=== PATIENT | female | born 1965 | race Caucasian/White ===

== ENCOUNTER → 2016-03-26 | Outpatient (CLI) | payer OTHER ==
[2016-03-26 12:38] LABS: Hemoglobin A1C 9.7 % (4.2-6.1)
== END | disposition home or self-care (01) ==
LOC: LABWHC1 10:12
PROVIDERS: ATTEND Family Medicine
DX: E11.9 Type 2 diabetes mellitus without complications (principal)
CPT/HCPCS: 36415; 82947; 83036

== ENCOUNTER → 2016-04-04 | Outpatient (CLI) | payer OTHER ==
--- NOTE | 2016-04-05 11:13 | MM ---
Reason for exam: screening (asymptomatic). Last mammogram was performed 1 year and 1 month ago. History: Family history of breast cancer in maternal grandmother and breast cancer in maternal aunt. Benign core biopsy of the left breast. Physical Findings: A clinical breast exam by your physician is recommended on an annual basis and results should be correlated with mammographic findings. MG 3D Screening Mammo W/Cad Bilateral CC and MLO view(s) were taken. Prior study comparison: February 28, 2015, mammogram, performed at [facility]. October 14, 2012, mammogram, performed at [facility]. The breast tissue is heterogeneously dense. This may lower the sensitivity of mammography. Finding: There are typically benign round, diffuse/scattered calcifications in both breasts. No significant changes in finding since February 28, 2015 and October 14, 2012. ASSESSMENT: Benign, BI-RAD 2 RECOMMENDATION: Routine screening mammogram of both breasts in 1 year.
== END | disposition home or self-care (01) ==
LOC: RADMAMWWP 07:01
PROVIDERS: ATTEND Family Medicine
DX: Z12.31 Encounter for screening mammogram for malignant neoplasm of breast (principal)
CPT/HCPCS: 77063; G0202

== ENCOUNTER → 2016-06-18 | Outpatient (CLI) | payer OTHER ==
[2016-06-18 09:13] LABS: ALT 27 U/L (9-52); AST 15 U/L (14-36); Alkaline Phosphatase 55 U/L (38-126); Anion Gap 11 mmol/L; Blood Urea Nitrogen 12 mg/dL (7-17); Calcium 9.1 mg/dL (8.4-10.2); Carbon Dioxide 26 mmol/L (22-30); Chloride 103 mmol/L (98-107); Cholesterol 197 mg/dL (<200); Glucose 143 mg/dL (74-99); HDL Cholesterol 57 mg/dL (40-60); Non-African American GFR(MDRD) >60 (>60 ml/min/1.73 sqM); Potassium 3.7 mmol/L (3.5-5.1); Sodium 140 mmol/L (137-145); Total Bilirubin 0.9 mg/dL (0.2-1.3); Total Protein 6.9 g/dL (6.3-8.2); Triglycerides 99 mg/dL (<150)
[2016-06-18 10:59] LABS: Hemoglobin A1C 6.1 % (4.2-6.1)
== END ==
LOC: LABWHC1 08:18
PROVIDERS: ATTEND Family Medicine
DX: E11.65 Type 2 diabetes mellitus with hyperglycemia (principal); E11.9 Type 2 diabetes mellitus without complications
CPT/HCPCS: 36415; 80053; 80061; 82043; 83036; 83721

== ENCOUNTER → 2016-06-28 | Outpatient (CLI) | payer SELFPAY ==
--- NOTE | 2016-06-28 14:50 | CT ---
EXAMINATION TYPE: CT heart w calcium score DATE OF EXAM: 06/28/2016 9:23 AM COMPARISON: NONE HISTORY: Screening for cardiovascular disorder. 213.9 CT DLP: 51.9 mGycm Automated exposure control for dose reduction was used. CT CALCIUM SCORING Coronary calcium is a marker for plaque (fatty deposits) in a blood vessel or atherosclerosis (harden ing of the arteries). The presence and amount of calcium detected in a coronary artery by the CT sca n, indicates the presence and amount of atherosclerotic plaque. These calcium deposits appear years before the development of heart disease symptoms such as chest pain and shortness of breath. A calcium score is computed for each of the coronary arteries based upon the volume and density of th e calcium deposits. This can be referred to as your calcified plaque burden. It does not correspond directly to the percentage of narrowing in the artery but does correlate with the severity of the un derlying coronary atherosclerosis. PROCEDURE TECHNIQUE - Prospective Gating was used. Slice thickness: 3mm. Density threshold (HU): 130, Pixel threshold: 3, Algorithm: discrete. RESULTS Region: LM Calcium Score (Agatston): 0 Volume (mm3): 0 Mass (g): 0 Region: RCA Calcium Score (Agatston): 0 Volume (mm3): 0 Mass (g): 0 Region: LAD Calcium Score (Agatston): 0 Volume (mm3): 0 Mass (g): 0 Region: CX Calcium Score (Agatston): 0 Volume (mm3): 0 Mass (g): 0 Total: Calcium Score (Agatston): 0 Volume (mm3): 0 Mass (g): 0 TOTAL CALCIUM SCORE: 0 OTHER: The aorta at the level of the main pulmonary artery is 3.3 cm. The main pulmonary artery at t he bifurcation is 2.8 cm. IMPRESSION: Calcium Score: 0 Implication: No identifiable plaque. Risk of Coronary Artery Disease: Very low, generally less than 5%.
== END | disposition home or self-care (01) ==
LOC: RADCTMAIN 07:00
PROVIDERS: ATTEND Radiology Diagnostic Radiology
DX: Z13.6 Encounter for screening for cardiovascular disorders (principal)

== ENCOUNTER → 2016-11-29 | Outpatient (CLI) | payer OTHER ==
[2016-11-29 10:50] LABS: Anion Gap 13 mmol/L; Blood Urea Nitrogen 16 mg/dL (7-17); Calcium 9.5 mg/dL (8.4-10.2); Carbon Dioxide 26 mmol/L (22-30); Chloride 101 mmol/L (98-107); Cholesterol 232 mg/dL (<200); Glucose 144 mg/dL (74-99); HDL Cholesterol 69 mg/dL (40-60); Non-African American GFR(MDRD) >60 (>60 ml/min/1.73 sqM); Sodium 140 mmol/L (137-145)
== END | disposition home or self-care (01) ==
LOC: LABWHC1 09:58
PROVIDERS: ATTEND Family Medicine
DX: E78.00 Pure hypercholesterolemia, unspecified (principal); E11.65 Type 2 diabetes mellitus with hyperglycemia
CPT/HCPCS: 36415; 80048; 80061

== ENCOUNTER → 2017-06-05 | Outpatient (CLI) | payer OTHER ==
--- NOTE | 2017-06-05 10:01 | MM ---
Reason for exam: screening (asymptomatic). Last mammogram was performed 1 year and 2 months ago. History: Family history of breast cancer in maternal grandmother and breast cancer in maternal aunt. Benign core biopsy of the left breast. Physical Findings: A clinical breast exam by your physician is recommended on an annual basis and results should be correlated with mammographic findings. MG 3D Screening Mammo W/Cad Bilateral CC, MLO, and XCCL view(s) were taken. Prior study comparison: April 04, 2016, bilateral MG 3d screening mammo w/cad. February 28, 2015, mammogram, performed at [facility]. The breast tissue is heterogeneously dense. This may lower the sensitivity of mammography. Finding #1: There is a typically benign equal density, obscured round mass located 8 cm from the nipple in the upper outer quadrant, posterior position of the right breast, slightly enlarged from 2017, ultrasound recommended. Finding #2: There are typically benign, stable, heterogeneous diffuse/scattered calcifications throughout both breasts. New finding since April 04, 2016 and February 28, 2015. These results were verbally communicated with the patient and result sheet given to the patient on 06/05/17. ASSESSMENT: Incomplete: need additional imaging evaluation, BI-RAD 0 RECOMMENDATION: Ultrasound of the left breast. [facility] will attempt to contact patient to return for ultrasound.
--- NOTE | 2017-06-05 10:03 | USB ---
Reason for exam: additional evaluation requested from abnormal screening. History: Family history of breast cancer in maternal grandmother and breast cancer in maternal aunt. Benign core biopsy of the left breast. Physical Findings: Nurse did not find any significant physical abnormalities on exam. US Breast Workup Limited LT Left breast ultrasound demonstrates three cystic lesions measuring 1.8 x 1.0 x 1.5cm at 2 o'clock, 0.6 x 0.4 x 0.8cm at 3 o'clock and 0.6 x 0.3 x 0.5cm at the axilla tail. These results were verbally communicated with the patient and result sheet given to the patient on 06/05/17. ASSESSMENT: Benign, BI-RAD 2 RECOMMENDATION: Return to routine screening mammogram schedule for both breasts.
== END | disposition home or self-care (01) ==
LOC: RADMAMWWP 08:01
PROVIDERS: ATTEND Family Medicine
DX: Z12.31 Encounter for screening mammogram for malignant neoplasm of breast (principal); R92.8 Other abnormal and inconclusive findings on diagnostic imaging of breast
CPT/HCPCS: 77063; 77067

== ENCOUNTER → 2017-11-15 | Outpatient (CLI) | payer MEDICAID ==
[2017-11-15 11:16] LABS: HCT 41.5 % (34.0-46.0); HGB 13.4 gm/dL (11.4-16.0); MCH 27.3 pg (25.0-35.0); MCHC 32.3 g/dL (31.0-37.0); MCV 84.6 fL (80.0-100.0); Mean Platelet Volume 7.2; Platelet Count 256 k/uL (150-450); RBC 4.91 m/uL (3.80-5.40); RDW 13.8 % (11.5-15.5); WBC 8.9 k/uL (3.8-10.6)
[2017-11-15 11:53] LABS: ALT 50 U/L (9-52); AST 35 U/L (14-36); Albumin 4.2 g/dL (3.5-5.0); Alkaline Phosphatase 54 U/L (38-126); Anion Gap 9 mmol/L; Blood Urea Nitrogen 15 mg/dL (7-17); Calcium 9.1 mg/dL (8.4-10.2); Carbon Dioxide 24 mmol/L (22-30); Chloride 105 mmol/L (98-107); Cholesterol 231 mg/dL (<200); Glucose 142 mg/dL (74-99); HDL Cholesterol 56 mg/dL (40-60); LDL Cholesterol,Calculated 153 mg/dL (0-99); Potassium 4.1 mmol/L (3.5-5.1); Sodium 138 mmol/L (137-145); Total Bilirubin 0.8 mg/dL (0.2-1.3); Triglycerides 108 mg/dL (<150)
== END | disposition home or self-care (01) ==
LOC: LABWHC1 10:40
PROVIDERS: ATTEND Internal Medicine Interventional Cardiology
DX: E78.2 Mixed hyperlipidemia (principal); I10 Essential (primary) hypertension; I49.9 Cardiac arrhythmia, unspecified
CPT/HCPCS: 36415; 80053; 80061; 84443; 85027

== ENCOUNTER → 2018-01-29 | Outpatient (CLI) | payer MEDICAID ==
[2018-01-29 15:55] LABS: LDL Cholesterol,Calculated 115.6 mg/dL (0.0-131.0); VLDL Calculation 23.4 mg/dL (5.00-40.00)
== END ==
LOC: LABWHC1 08:42
PROVIDERS: ATTEND Internal Medicine Interventional Cardiology
DX: E78.2 Mixed hyperlipidemia (principal)
CPT/HCPCS: 36415; 80061; 84450; 84460

== ENCOUNTER → 2018-07-22 | Outpatient (CLI) | payer MEDICAID ==
--- NOTE | 2018-07-22 12:27 | MM ---
Reason for exam: screening (asymptomatic). Baseline mammogram. History: Family history of breast cancer in maternal grandmother and breast cancer in maternal aunt. Benign core biopsy of the left breast. Physical Findings: Nurse did not find any significant physical abnormalities on exam. MG 3D Screening Mammo W/Cad Bilateral CC and MLO view(s) were taken. Prior study comparison: June 05, 2017, bilateral MG 3d screening mammo w/cad. April 04, 2016, bilateral MG 3d screening mammo w/cad. The breast tissue is heterogeneously dense. This may lower the sensitivity of mammography. There are benign appearing round, oval, circumscribed bilateral masses waxing and waning over time most mammographic cysts. Left ultrasound demonstrates multiple cysts on 06/05/17. Right ultrasound will confirm cystic nature. Benign appearing bilateral calcifications, similar in distribution to the prior exams. These results were verbally communicated with the patient and result sheet given to the patient on 07/22/18. ASSESSMENT: Incomplete: need additional imaging evaluation, BI-RAD 0 RECOMMENDATION: Ultrasound of both breasts. (right upper outer quadrant, lower inner quadrant)
--- NOTE | 2018-07-22 12:30 | USB ---
Reason for exam: additional evaluation requested from abnormal screening. History: Family history of breast cancer in maternal grandmother and breast cancer in maternal aunt. Benign core biopsy of the left breast. Physical Findings: Breast exam preformed at baseline screening. US Breast Workup Limited RT Right limited breast ultrasound including focal area of concern, retroareolar and axilla demonstrates a 2.8 x 1.3 x 4.9cm cystic, benign lesion at 5 o'clock, a 2.6 x 0.3 x 2.0cm oval, benign, cystic cluster at 9 o'clock and a 1.2 x 0.4 x 0.5cm cystic cluster at 10 o'clock, minimally complicated, thin septations, probably benign. These results were verbally communicated with the patient and result sheet given to the patient on 07/22/18. ASSESSMENT: Probably benign, BI-RAD 3 RECOMMENDATION: Ultrasound of the right breast in 6 months. (10 o'clock)
== END | disposition home or self-care (01) ==
LOC: RADMAMWWP 10:07
PROVIDERS: ATTEND Family Medicine
DX: Z12.31 Encounter for screening mammogram for malignant neoplasm of breast (principal); R92.8 Other abnormal and inconclusive findings on diagnostic imaging of breast
CPT/HCPCS: 77063; 77067

== ENCOUNTER → 2018-08-12 | Outpatient (CLI) | payer MEDICAID ==
[2018-08-12 10:17] LABS: Basophils % (A) 0 %; Eosinophils # (A) 0.1 k/uL (0-0.7); Eosinophils % (A) 2 %; HCT 40.8 % (34.0-46.0); HGB 13.4 gm/dL (11.4-16.0); Lymphocytes # (A) 2.2 k/uL (1.0-4.8); Lymphocytes % (A) 28 %; MCH 27.8 pg (25.0-35.0); MCHC 32.8 g/dL (31.0-37.0); MCV 84.7 fL (80.0-100.0); Monocytes # (A) 0.4 k/uL (0-1.0); Monocytes % (A) 5 %; Neutrophils % (A) 63 %; Platelet Count 217 k/uL (150-450); RBC 4.82 m/uL (3.80-5.40)
[2018-08-12 16:00] LABS: African American GFR (CKD) 115.5 (60.0-200.0); Albumin 4.3 g/dL (3.80-4.90); Albumin/Globulin Ratio 2.53 (1.60-3.17); Anion Gap 10.4 mmol/L (4.00-12.00); BUN/Creat Ratio 21.43 Ratio (12.00-20.00); Calcium 9.1 mg/dL (8.7-10.3); Carbon Dioxide 25.6 mmol/L (21.6-31.8); Globulin 1.7 g/dL (1.6-3.3); Total Bilirubin 0.8 mg/dL (0.2-1.2)
== END ==
LOC: LABWHC1 08:26
PROVIDERS: ATTEND Family Medicine
DX: Z00.00 Encounter for general adult medical examination without abnormal findings (principal); E11.9 Type 2 diabetes mellitus without complications; E78.00 Pure hypercholesterolemia, unspecified
CPT/HCPCS: 36415; 80053; 80061; 83036; 85025

== ENCOUNTER → 2019-02-03 | Outpatient (CLI) | payer MEDICAID ==
--- NOTE | 2019-02-03 09:18 | USB ---
Reason for exam: follow-up at short interval from prior study. History: Family history of breast cancer in maternal grandmother and breast cancer in maternal aunt. Benign core biopsy of the left breast. Physical Findings: Nurse did not find any significant physical abnormalities on exam. US Breast Limited RT Right limited breast ultrasound including focal area of concern, retroareolar and axilla demonstrates a 0.4 x 0.4 x 0.7cm oval, lobular, hypoechoic, stable lesion at 10 o'clock. Possible ductal ectasia at 9 o'clock as seen on prior. No new significant cystic or solid lesion greater than 0.50cm. These results were verbally communicated with the patient and result sheet given to the patient on 02/03/19. ASSESSMENT: Benign, BI-RAD 2 RECOMMENDATION: Return to routine screening mammogram schedule for both breasts. Back on schedule.
== END | disposition home or self-care (01) ==
LOC: RADUSWWP 08:13
PROVIDERS: ATTEND Family Medicine
DX: N60.01 Solitary cyst of right breast (principal)

== ENCOUNTER → 2019-09-17 | Outpatient (CLI) | payer MEDICAID ==
--- NOTE | 2019-09-18 09:11 | MM ---
Reason for exam: screening (asymptomatic). Last mammogram was performed 1 year and 2 months ago. History: Family history of breast cancer in maternal grandmother and breast cancer in maternal aunt. Benign core biopsy of the left breast. Physical Findings: A clinical breast exam by your physician is recommended on an annual basis and results should be correlated with mammographic findings. MG 3D Screening Mammo W/Cad Bilateral CC and MLO view(s) were taken. Prior study comparison: July 22, 2018, bilateral MG 3d screening mammo w/cad. June 05, 2017, bilateral MG 3d screening mammo w/cad. The breast tissue is heterogeneously dense. This may lower the sensitivity of mammography. Focal asymmetry upper outer quadrant left breast. This finding is changed when compared with previous exams. ASSESSMENT: Incomplete: need additional imaging evaluation, BI-RAD 0 RECOMMENDATION: Special view mammogram of the left breast. If lesion persists on supplemental views, image directed ultrasound is recommended. [facility] will attempt to contact patient to return for supplemental views and ultrasound if indicated.
== END | disposition home or self-care (01) ==
LOC: RADMAMWWP 08:49
PROVIDERS: ATTEND Family Medicine
DX: Z12.31 Encounter for screening mammogram for malignant neoplasm of breast (principal)
CPT/HCPCS: 77063; 77067

== ENCOUNTER → 2019-09-22 | Outpatient (CLI) | payer MEDICAID ==
--- NOTE | 2019-09-22 09:51 | MM ---
Reason for exam: additional evaluation requested from abnormal screening. Last mammogram was performed less than 1 month ago. History: Family history of breast cancer in maternal grandmother and breast cancer in maternal aunt. Benign core biopsy of the left breast. Physical Findings: Nurse Summary: 1cm nodule in the left breast at 11 o'clock and 2 o'clock (nurse mj). MG 3D Work Up W/Cad LT Spot compression CC, spot compression MLO, and LM view(s) were taken of the left breast. Prior study comparison: September 17, 2019, bilateral MG 3d screening mammo w/cad. July 22, 2018, bilateral MG 3d screening mammo w/cad. The breast tissue is heterogeneously dense. This may lower the sensitivity of mammography. Regional punctate calcifications redemonstrated. No persisting abnormality on spot 3D view. These results were verbally communicated with the patient and result sheet given to the patient on 09/22/19. ASSESSMENT: Incomplete: need additional imaging evaluation, BI-RAD 0 RECOMMENDATION: Ultrasound of the left breast. (including the 2 o'clock and 11 o'clock nurse palpated sites)
--- NOTE | 2019-09-22 09:53 | USB ---
Reason for exam: additional evaluation requested from abnormal screening. History: Family history of breast cancer in maternal grandmother and breast cancer in maternal aunt. Benign core biopsy of the left breast. US Breast Workup LT Technologist: Regi Hernandez Left complete breast ultrasound includes all four quadrants, the retroareolar region and axilla. Finding demonstrates a 1.0 x 1.0 x 0.8cm circular, cystic lesion at 2 o'clock, smaller, benign at the palpable and a 0.8 x 0.7 x 0.7cm complex cyst with septations versus cyst cluster at 2 o'clock, 6 month follow up recommended. Dense tissue at the 11 o'clock nurse palpated site. These results were verbally communicated with the patient and result sheet given to the patient on 09/22/19. ASSESSMENT: Probably benign, BI-RAD 3 RECOMMENDATION: Ultrasound of the left breast in 6 months. (attention 2 o'clock zone A) Manage on a clinical basis with regard to any suspicious palpable areas.
== END | disposition home or self-care (01) ==
LOC: RADMAMWWP 07:42
PROVIDERS: ATTEND Family Medicine
DX: N63.0 Unspecified lump in unspecified breast (principal)
CPT/HCPCS: 77061; 77065

== ENCOUNTER → 2020-04-08 | Outpatient (CLI) | payer MEDICAID ==
--- NOTE | 2020-04-11 08:44 | USB ---
Reason for exam: follow-up at short interval from prior study. History: Family history of breast cancer in maternal grandmother and breast cancer in maternal aunt. Benign core biopsy of the left breast. Physical Findings: Nurse did not find any significant physical abnormalities on exam. US Breast Limited LT Left limited breast ultrasound including focal area of concern, retroareolar and axilla demonstrates a 10 x 8 x 10mm oval, mixed lesion at 2 o'clock, decreased in size since 2018. These results were verbally communicated with the patient and result sheet given to the patient on 04/08/20. ASSESSMENT: Probably benign, BI-RAD 3 RECOMMENDATION: Follow-up diagnostic mammogram of both breasts in 6 months. Ultrasound of the left breast in 6 months.
== END | disposition home or self-care (01) ==
LOC: RADUSWWP 14:08
PROVIDERS: ATTEND Family Medicine
DX: R92.8 Other abnormal and inconclusive findings on diagnostic imaging of breast (principal)

== ENCOUNTER → 2020-10-26 | Outpatient (CLI) | payer MEDICAID ==
--- NOTE | 2020-10-27 10:09 | MM ---
Reason for exam: follow-up at short interval from prior study. Last mammogram was performed 1 year and 1 month ago. History: Family history of breast cancer in maternal grandmother and breast cancer in maternal aunt. Benign core biopsy of the left breast. Physical Findings: Nurse did not find any significant physical abnormalities on exam. MG 3D Diag Mammo W/Cad HILARIO Bilateral CC, MLO, and XCCL view(s) were taken. Prior study comparison: September 22, 2019, left breast MG 3d work up w/cad LT. September 17, 2019, bilateral MG 3d screening mammo w/cad. The breast tissue is heterogeneously dense. This may lower the sensitivity of mammography. Stable benign calcifications. There is chronic nodularity. Density left breast 2 o'clock persists but is improved. Stable well circumscribed lesion right breast. These results were verbally communicated with the patient and result sheet given to the patient on 10/26/20. ASSESSMENT: Incomplete: need additional imaging evaluation, BI-RAD 0 RECOMMENDATION: Ultrasound of the left breast.
--- NOTE | 2020-10-27 10:12 | USB ---
Reason for exam: additional evaluation requested from abnormal screening. History: Family history of breast cancer in maternal grandmother and breast cancer in maternal aunt. Benign core biopsy of the left breast. US Breast Limited LT Left limited breast ultrasound including focal area of concern, retroareolar and axilla demonstrates a 0.9 x 0.8 x 0.9cm mixed lesion at 2 o'clock. Slightly smaller in size, continued surveillance. These results were verbally communicated with the patient and result sheet given to the patient on 10/26/20. ASSESSMENT: Probably benign, BI-RAD 3 RECOMMENDATION: Ultrasound of the left breast in 6 months.
== END | disposition home or self-care (01) ==
LOC: RADMAMWWP 13:31
PROVIDERS: ATTEND Family Medicine
DX: R92.1 Mammographic calcification found on diagnostic imaging of breast (principal); Z80.3 Family history of malignant neoplasm of breast
CPT/HCPCS: 77062; 77066

== ENCOUNTER → 2021-11-24 | Outpatient (CLI) | payer MEDICAID ==
--- NOTE | 2021-11-24 08:56 | MM ---
Reason for Exam: Screening (asymptomatic). Last mammogram was performed 1 year(s) and 1 month(s) ago. Patient History: Menarche at age 13. First Full-Term at age 24. Benign Core Biopsy on the left side. Maternal grandmother had breast cancer, age 50. Maternal aunt had breast cancer, age 50. Risk Values: Yuliana 5 year model risk: 1.2%. NCI Lifetime model risk: 8.7%. Prior Study Comparison: 09/17/2019 Bilateral Screening Mammogram, [facility]. 09/22/2019 Left Diagnostic Mammogram, [facility]. 10/26/2020 Bilateral Diagnostic Mammogram, [facility]. Tissue Density: The breast tissue is heterogeneously dense. This may lower the sensitivity of mammography. Findings: Analyzed By CAD. There is no suspicious group of microcalcifications or new suspicious mass in either breast. Stable benign calcifications. Stable chronic nodularity within both breasts. No significant change from prior exams. Overall Assessment: Benign, BI-RAD 2 Management: Screening Mammogram of both breasts in 1 year. A clinical breast exam by your physician is recommended on an annual basis and results should be correlated with mammographic findings. Electronically signed and approved by: Cedric Joseph D.O.
== END | disposition home or self-care (01) ==
LOC: RADMAMWWP 08:31
PROVIDERS: ATTEND Internal Medicine
DX: Z12.31 Encounter for screening mammogram for malignant neoplasm of breast (principal); Z80.3 Family history of malignant neoplasm of breast
CPT/HCPCS: 77063; 77067

== ENCOUNTER → 2022-10-04 | Outpatient (CLI) | payer MEDICAID ==
[2022-10-04 21:02] LABS: Mumps Virus IgG Ab Interp POSITIVE; Mumps Virus IgG Antibody 4.4 AI
== END | disposition home or self-care (01) ==
LOC: LABWHC1 09:43
DX: Z01.84 Encounter for antibody response examination (principal)
CPT/HCPCS: 36415; 86735; 86762; 86765

== ENCOUNTER → 2023-01-14 | Outpatient (CLI) | payer MEDICAID ==
[2023-01-14 16:53] LABS: Basophils # (A) 0.05 X 10*3/uL (0.00-0.10); Basophils % (A) 0.6 %; Eosinophils % (A) 2.5 %; HCT 43.5 % (37.2-46.3); HGB 14.2 g/dL (12.0-15.0); Lymphocytes # (A) 2.92 X 10*3/uL (0.90-5.00); Lymphocytes % (A) 35.8 %; MCH 28.5 pg (27.0-32.0); MCHC 32.6 g/dL (32.0-37.0); MCV 87.3 FL (80.0-97.0); Mean Platelet Volume 11.1 FL (9.5-12.2); Monocytes # (A) 0.56 X 10*3/uL (0.20-1.00); Monocytes % (A) 6.9 %; NRBC Per 100 WBC 0 X 10*3/uL (0.00-0.01); Neutrophils # (A) 4.41 X 10*3/uL (1.80-7.70); Platelet Count 281 X 10*3/uL (140-440); RBC 4.98 X 10*6/uL (4.10-5.20); RDW 12.9 % (11.5-14.5); WBC 8.16 X 10*3/uL (4.50-10.00)
[2023-01-14 18:32] LABS: Chol/HDL Ratio 3.59 Ratio; LDL Cholesterol,Calculated 115.6 mg/dL (0.0-131.0)
[2023-01-14 18:33] LABS: ALT 32 U/L (8-44); AST 20 U/L (13-35); Albumin 4.7 g/dL (3.8-4.9); Albumin/Globulin Ratio 2.24 Ratio (1.60-3.17); Alkaline Phosphatase 59 U/L (41-126); Blood Urea Nitrogen 15.6 mg/dL (9.0-27.0); Calcium 9.9 mg/dL (8.7-10.3); Carbon Dioxide 25.1 mmol/L (21.6-31.8); Chloride 102 mmol/L (96-109); Globulin 2.1 g/dL (1.6-3.3); Glucose 148 mg/dL (70-110); Sodium 140 mmol/L (135-145); Total Bilirubin 0.5 mg/dL (0.3-1.2); Total Protein 6.8 g/dL (6.2-8.2)
[2023-01-14 20:25] LABS: Microalbumin Creatinine Ratio <7 mg/g Cr (0-30)
== END | disposition home or self-care (01) ==
LOC: LABWHC1 07:37
PROVIDERS: ATTEND Internal Medicine
DX: E11.319 Type 2 diabetes mellitus with unspecified diabetic retinopathy without macular edema (principal)
CPT/HCPCS: 36415; 80053; 80061; 82043; 82570; 83036; 85025

== ENCOUNTER → 2023-01-14 | Outpatient (CLI) | payer MEDICAID ==
--- NOTE | 2023-01-14 08:17 | MM ---
Reason for Exam: Screening (asymptomatic). Last mammogram was performed 1 year(s) and 2 month(s) ago. Patient History: Menarche at age 13. First Full-Term at age 24. Postmenopausal. Benign Core Biopsy on the left side. Maternal grandmother had breast cancer, age 50. Maternal aunt had breast cancer, age 50. Risk Values: Yuliana 5 year model risk: 1.3%. NCI Lifetime model risk: 8.5%. Prior Study Comparison: 09/22/2019 Left Diagnostic Mammogram, [facility]. 10/26/2020 Bilateral Diagnostic Mammogram, [facility]. 11/24/2021 Bilateral MG 3D screening mammo w/cad, [facility]. Tissue Density: The breast tissue is heterogeneously dense. This may lower the sensitivity of mammography. Findings: Analyzed By CAD. There is no suspicious group of microcalcifications or new suspicious mass in either breast. Stable benign calcifications within both breasts. Stable chronic nodularity within both breasts. Overall Assessment: Benign, BI-RAD 2 Management: Screening Mammogram of both breasts in 1 year. A clinical breast exam by your physician is recommended on an annual basis and results should be correlated with mammographic findings. Note on Yuliana scores and lifetime risk: 1. A Yuliana score greater than 3% is considered moderate risk. If this is the case, consider specialist referral to assess eligibility for a risk reducing agent. If overall lifetime risk for the development of breast cancer is 20% or higher, the patient may qualify for future screening with alternating mammogram and breast MRI. Electronically signed and approved by: Cedric Joseph D.O.
== END | disposition home or self-care (01) ==
LOC: RADMAMWWP 07:04
PROVIDERS: ATTEND Internal Medicine
DX: Z12.31 Encounter for screening mammogram for malignant neoplasm of breast (principal); Z78.0 Asymptomatic menopausal state; Z80.3 Family history of malignant neoplasm of breast
CPT/HCPCS: 77063; 77067

== ENCOUNTER → 2024-01-29 | Outpatient (CLI) | payer MEDICAID ==
--- NOTE | 2024-01-31 15:01 | MM ---
Reason for Exam: Screening (asymptomatic). Last screening mammogram was performed 12 month(s) ago. Patient History: Menarche at age 13. First Full-Term at age 24. Postmenopausal. Patient has history of breast feeding. Benign Core Biopsy on the left side. Maternal grandmother had breast cancer, age 50. Maternal aunt had breast cancer, age 50. Risk Values: Yuliana 5 year model risk: 1.4%. NCI Lifetime model risk: 8.3%. Prior Study Comparison: 10/26/2020 Bilateral Diagnostic Mammogram, [facility]. 11/24/2021 Bilateral MG 3D screening mammo w/cad, [facility]. 01/14/2023 Bilateral MG 3D screening mammo w/cad, [facility]. Tissue Density: The breasts are heterogeneously dense, which may obscure small masses. Findings: Analyzed By CAD. Bilateral areas of asymmetric density are unchanged. A few benign well cystic calcifications bilaterally and benign regional punctate calcifications redemonstrated. Low-density circumscribed nodularity anterior inferior right breast is unchanged as well. There is no suspicious group of microcalcifications or new suspicious mass in either breast. Overall Assessment: Benign, BI-RAD 2 Management: Screening Mammogram of both breasts in 1 year. Patient should continue monthly self-breast exams. A clinical breast exam by your physician is recommended on an annual basis. This exam should not preclude additional follow-up of suspicious palpable abnormalities. Note on Yuliana scores and lifetime risk: 1. A Yuliana score greater than 3% is considered moderate risk. If this is the case, consider specialist referral to assess eligibility for a risk reducing agent. 2. If overall lifetime risk for the development of breast cancer is 20% or higher, the patient may qualify for future screening with alternating mammogram and breast MRI. [facility], , 01/31/2024 2:58 PM. Electronically signed and approved by: Dylon Paniagua M.D. Radiologist
== END | disposition home or self-care (01) ==
LOC: RADMAMWWP 08:56
PROVIDERS: ATTEND Internal Medicine
DX: Z12.31 Encounter for screening mammogram for malignant neoplasm of breast (principal); Z78.0 Asymptomatic menopausal state; Z80.3 Family history of malignant neoplasm of breast; R92.333 Mammographic heterogeneous density, bilateral breasts
CPT/HCPCS: 77063; 77067

== ENCOUNTER → 2024-06-17 | Outpatient (CLI) | payer MEDICAID ==
--- NOTE | 2024-06-17 14:24 | US ---
EXAMINATION TYPE: US carotid duplex BILAT DATE OF EXAM: 06/17/2024 COMPARISON: NONE CLINICAL INDICATION: Female, 59 years old with history of R09.89 OTHER SX AND SIGNS INVOLVING CIRC AN D 110; bruit Additional History: .... TECHNIQUE: Grayscale, color Doppler and spectral Doppler evaluation of the bilateral carotid systems and vertebral arteries. Indirect Doppler criteria was utilized. FINDINGS: EXAM MEASUREMENTS: RIGHT: Peak Systolic Velocity (PSV) cm/sec ----- Right CCA: 95.8 ----- Right ICA: 117.7 ----- Right ECA: 98.4 ICA/CCA ratio: 1.2 RIGHT: End Diastole cm/sec ----- Right CCA: 24.6 ----- Right ICA: 28.9 ----- Right ECA: 12.8 LEFT: Peak Systolic Velocity (PSV) cm/sec ----- Left CCA: 95 ----- Left ICA: 98.6 ----- Left ECA: 62.4 ICA/CCA ratio: 1.0 LEFT: End Diastole cm/sec ----- Left CCA: 26 ----- Left ICA: 39.1 ----- Left ECA: 18.4 VERTEBRALS (direction of flow): Right Vertebral: Antegrade Left Vertebral: Antegrade Rhythm: Normal POLITICAL ADVISOR NOTES: No significant stenosis seen Color Doppler imaging shows patency with blood flow throughout the carotid artery. Spectral waveforms are within normal limits. IMPRESSION: Right: No hemodynamically significant stenosis. Left: No hemodynamically significant stenosis. Criteria for Assigning % of Stenosis / Diameter reduction (Estimation based on the indirect measurements of the internal carotid artery velocities (ICA PSV). 1. Normal (no stenosis)=ICA PSV < 180 cm/s: ratio < 2.0: ICA EDV<40 cm/s. 2. Less than 50% stenosis=ICA PSV < 180 cm/s: ratio < 2.0: ICA EDV<40 cm/s. 3. 50 to 69% stenosis=ICA PSV of 180 to 230 cm/s: ration 2.0 ? 4.0: ICA EDV 40-100 cm/s. PSV 125-180 cm/sec and ICA/CCA PSV Ratio ? 2.0 is also consistent with 50-69% stenosis 4. Greater than 70% stenosis to near occlusion= ICA PSV > 230 cm/s: ratio > 4.0: ICA EDV > 100 cm/s. 5. Near occlusion= ICA PSV velocities may be low or undetectable: variable ratio and ICA EDV. 6. Total occlusion=unable to detect flow. [facility], , 06/17/2024 2:22 PM
--- NOTE | 2024-06-18 13:38 | CA ---
Transthoracic Echo Report Name: Mariela Chang Age: 59 Gender: F : 1965 Exam Date: 06/17/2024 13:01 Exam Location: [facility] Ht (in): 67 Wt (lb): 180 Ordering Physician: Deepa Mello MD ([id number]) Attending/Referring Phys: Deepa Mello MD ([id number]) I&C Tech Taylor Smith RDCS Procedure CPT: Indications: R09.89 OTHER SX AND SIGNS INVOLVING CIRC AND RESP, Cardiomyopathy, unspecified Cardiac Hx: Technical Quality: Good Contrast 1: Total Dose (mL): Contrast 2: Total Dose (mL): MEASUREMENTS (Male / Female) Normal Values 2D ECHO LV Diastolic Volume MOD BP 66.7 cm??? 67 - 155 / 56 - 104 cm??? LV Systolic Volume MOD BP 22.1 cm??? 22 - 58 / 19 - 49 cm??? LV Ejection Fraction MOD BP 66.9 % >= 55 % LV Cardiac Index MOD BP 2046.3 cm???/min???m??? LV Diastolic Volume MOD 4C 71.2 cm??? LV Systolic Volume MOD 4C 20.7 cm??? LV Ejection Fraction MOD 4C 70.9 % LV Cardiac Index MOD 4C 2315.7 cm???/min???m??? LV Diastolic Length 4C 7.4 cm LV Systolic Length 4C 5.8 cm LV Diastolic Volume MOD 2C 59.9 cm??? LV Systolic Volume MOD 2C 22.3 cm??? LV Ejection Fraction MOD 2C 62.8 % LV Cardiac Index MOD 2C 1723.8 cm???/min???m??? LV Diastolic Length 2C 7.1 cm LV Systolic Length 2C 5.4 cm LA Volume 59.5 cm??? 18 - 58 / 22 - 52 cm??? LA Volume Index 30.0 cm???/m??? 16 - 28 cm???/m??? M-MODE Aortic Root Diameter MM 2.9 cm LA Systolic Diameter MM 4.0 cm LA Ao Ratio MM 1.4 AV Cusp Separation MM 1.7 cm DOPPLER AV Peak Velocity 188.8 cm/s AV Peak Gradient 14.3 mmHg MV Area PHT 2.8 cm??? Mitral E Point Velocity 90.6 cm/s Mitral A Point Velocity 91.4 cm/s Mitral E to A Ratio 1.0 MV Deceleration Time 269.2 ms TR Peak Velocity 201.1 cm/s TR Peak Gradient 16.2 mmHg FINDINGS Left Ventricle Left ventricular ejection fraction is estimated at 55-60%. Normal left ventricular systolic function with no obvious regional wall motion abnormalities. Left ventricular cavity size normal. Left ventricular wall thickness normal. Right Ventricle . Right ventricular systolic pressure within normal limits.normal right ventricular size and function. Right Atrium Mild right atrial dilatation. Left Atrium Mildly increased left atrial volume. Mitral Valve Structurally normal mitral valve. Trace to mild mitral regurgitation. No mitral stenosis. Aortic Valve Trileaflet aortic valve. No aortic valve stenosis or regurgitation. Tricuspid Valve Structurally normal tricuspid valve. Trace to mild tricuspid regurgitation. No tricuspid stenosis. Pulmonic Valve Structurally normal pulmonic valve. Trace pulmonic regurgitation. No pulmonic stenosis. Pericardium No pericardial or pleural effusion. Aorta Normal size aortic root and proximal ascending aorta. CONCLUSIONS LVEF 55% No obvious regional wall motion abnormality Mild concentric LVH Normal RV size systolic function Mild biatrial dilatation No significant valvular dysfunction Previewed by: Dr Nimesh Andrade (Electronically Signed) Final Date: 18 June 2024 13:37
== END | disposition home or self-care (01) ==
LOC: RADECHMAIN 12:58
PROVIDERS: ATTEND Internal Medicine Interventional Cardiology
DX: I10 Essential (primary) hypertension (principal); R09.89 Other specified symptoms and signs involving the circulatory and respiratory systems; I42.9 Cardiomyopathy, unspecified
CPT/HCPCS: 93306; 93880